=== PATIENT | male | born 1995 | race Caucasian/White ===

== ENCOUNTER 2021-07-21 08:45 | Emergency (ER) | payer OTHER ==
[2021-07-21 08:55] VITALS: RESP 18; TEMP 97.1
[2021-07-21] MEDS ORDERED: KETOROLAC 15 MG/ML 1 ML VIAL IVP STA (09:35)
--- NOTE | 2021-07-21 10:02 | ED ---
General Adult HPI - General Chief complaint: Back Pain/Injury Stated complaint: trouble urinating & lower back pain Time Seen by Provider: 07/21/21 09:17 Source: patient Mode of arrival: ambulatory Limitations: no limitations - History of Present Illness Initial comments: patient is a 25-year-old male with a history of opioid use disorder who presents to the emergency department with lower left back pain 2 months. No known mechanism of back injury. Patient describes the pain as an intermittent dull ache, 4 out of 10 in severity. patient has never experienced this pain before. pain radiates to the left flank and left upper quadrant below the ribs. patient states nothing makes the pain better or worse. patient reports associated urinary hesitancy, retention, and dysuria 2 months. he also reports left thigh numbness. He denies chest pain, fever, chills, penile discharge, and hematuria. Patient reports he is a nondrinker and is sexually active with no concerned for STIs. MD Complaint: left flank pain -: month(s) (two) Location: back Radiation: abdomen (LUQ below ribs), flank Severity scale (1-10): 4 Quality: dull Consistency: intermittent Improves with: none Worsens with: none Associated Symptoms: shortness of breath, other (urinary hesitancy, retention, dysuria ) Treatments Prior to Arrival: none, other - Related Data Allergies Allergy/AdvReac Type Severity Reaction Status Date / Time No Known Allergies Allergy Verified 07/21/21 08:55 Review of Systems ROS Statement: Those systems with pertinent positive or pertinent negative responses have been documented in the HPI. ROS Other: All systems not noted in ROS Statement are negative. Past Medical History Past Medical History: No Reported History History of Any Multi-Drug Resistant Organisms: None Reported Past Surgical History: No Surgical Hx Reported Past Psychological History: Anxiety, Depression Smoking Status: Current every day smoker Past Alcohol Use History: None Reported Past Drug Use History: None Reported General Exam Limitations: no limitations General appearance: alert, in no apparent distress Head exam: Present: atraumatic, normocephalic, normal inspection Eye exam: Present: normal appearance, PERRL, EOMI. Absent: scleral icterus, conjunctival injection, periorbital swelling Neck exam: Present: normal inspection. Absent: tenderness, meningismus, lymphadenopathy Respiratory exam: Present: normal lung sounds bilaterally. Absent: respiratory distress, wheezes, rales, rhonchi, stridor Cardiovascular Exam: Present: regular rate, normal rhythm, normal heart sounds. Absent: systolic murmur, diastolic murmur, rubs, gallop, clicks GI/Abdominal exam: Present: soft, normal bowel sounds. Absent: distended, tenderness, guarding, rebound, rigid Back exam: Present: full ROM, CVA tenderness (L). Absent: tenderness, CVA tenderness (R), muscle spasm, paraspinal tenderness, vertebral tenderness, rash noted Neurological exam: Present: alert Psychiatric exam: Present: normal affect, normal mood Skin exam: Present: warm, dry, intact, normal color Course Vital Signs 07/21/21 08:49 Temperature 97.1 F L Pulse Rate 76 Respiratory 18 Rate Blood Pressure 140/65 O2 Sat by Pulse 100 Oximetry Medical Decision Making - Medical Decision Making this is a 25-year-old male with back pain 2 months. Labs are unremarkable. CT abdomen reveals no acute process. Patient to be discharged with outpatient follow-up for MSK pain. Return parameters discussed. - Lab Data Result diagrams: 07/21/21 09:46 07/21/21 09:46 Lab Results 07/21/21 07/21/21 07/21/21 Range/Units 09:46 09:46 09:48 WBC 5.2 (3.8-10.6) k/uL RBC 4.89 (4.30-5.90) m/uL Hgb 14.6 (13.0-17.5) gm/dL Hct 43.9 (39.0-53.0) % MCV 89.8 (80.0-100.0) fL MCH 29.9 (25.0-35.0) pg MCHC 33.3 (31.0-37.0) g/dL RDW 12.8 (11.5-15.5) % Plt Count 291 (150-450) k/uL MPV 6.9 Neutrophils % 44 % Lymphocytes % 37 % Monocytes % 9 % Eosinophils % 8 % Basophils % 1 % Neutrophils # 2.3 (1.3-7.7) k/uL Lymphocytes # 2.0 (1.0-4.8) k/uL Monocytes # 0.4 (0-1.0) k/uL Eosinophils # 0.4 (0-0.7) k/uL Basophils # 0.0 (0-0.2) k/uL Sodium 139 (137-145) mmol/L Potassium 5.8 H (3.5-5.1) mmol/L Chloride 106 (98-107) mmol/L Carbon Dioxide 27 (22-30) mmol/L Anion Gap 6 mmol/L BUN 14 (9-20) mg/dL Creatinine 0.83 (0.66-1.25) mg/dL Est GFR (CKD-EPI)AfAm >90 (>60 ml/min/1.73 sqM) Est GFR (CKD-EPI)NonAf >90 (>60 ml/min/1.73 sqM) Glucose 101 H (74-99) mg/dL Calcium 9.7 (8.4-10.2) mg/dL Total Bilirubin 0.8 (0.2-1.3) mg/dL AST 34 (17-59) U/L ALT 23 (4-49) U/L Alkaline Phosphatase 59 (38-126) U/L Total Protein 7.5 (6.3-8.2) g/dL Albumin 4.6 (3.5-5.0) g/dL Lipase 72 (23-300) U/L Urine Color Yellow Urine Appearance Cloudy (Clear) Urine pH 6.5 (5.0-8.0) Ur Specific [place] 1.023 (1.001-1.035) Urine Protein Negative (Negative) Urine Glucose (UA) Negative (Negative) Urine Ketones Negative (Negative) Urine Blood Negative (Negative) Urine Nitrite Negative (Negative) Urine Bilirubin Negative (Negative) Urine Urobilinogen <2.0 (<2.0) mg/dL Ur Leukocyte Esterase Negative (Negative) Urine RBC <1 (0-5) /hpf Urine WBC 2 (0-5) /hpf Amorphous Sediment Occasional H (None) /hpf Urine Mucus Rare H (None) /hpf Disposition Clinical Impression: Mechanical back pain Disposition: HOME SELF-CARE Condition: Good Instructions (If sedation given, give patient instructions): Acute Low Back Pain (ED) Additional Instructions: Patient instructed to return to ED if back pain worsens or if there is new onset of fever, chills, or numbness. Is patient prescribed a controlled substance at d/c from ED?: No Referrals: None,Stated [Primary Care Provider] - 1-2 days Time of Disposition: 11:20
[2021-07-21 10:11] LABS: Basophils % (A) 1 %; Eosinophils # (A) 0.4 k/uL (0-0.7); Eosinophils % (A) 8 %; HCT 43.9 % (39.0-53.0); HGB 14.6 gm/dL (13.0-17.5); Lymphocytes % (A) 37 %; MCH 29.9 pg (25.0-35.0); MCHC 33.3 g/dL (31.0-37.0); MCV 89.8 fL (80.0-100.0); Mean Platelet Volume 6.9; Monocytes # (A) 0.4 k/uL (0-1.0); Monocytes % (A) 9 %; Neutrophils # (A) 2.3 k/uL (1.3-7.7); Neutrophils % (A) 44 %; Platelet Count 291 k/uL (150-450); RBC 4.89 m/uL (4.30-5.90); RDW 12.8 % (11.5-15.5); WBC 5.2 k/uL (3.8-10.6)
[2021-07-21 10:18] LABS: Amorphous Sediment,Urine Occasional /hpf; Appearance,Urine Cloudy (Clear); Bilirubin,Urine Negative (Negative); Blood,Urine Negative (Negative); Color,Urine Yellow; Glucose,Urine (UA) Negative (Negative); Ketones,Urine Negative (Negative); Leukocyte Esterase,Urine Negative (Negative); Mucus,Urine Rare /hpf; Nitrite,Urine Negative (Negative); PH, Urine 6.5 (5.0-8.0); Protein,Urine Negative (Negative); RBC,Urine <1 /hpf (0-5); Specific Gravity,Urine 1.023 (1.001-1.035); Urobilinogen,Urine <2.0 mg/dL (<2.0); WBC,Urine 2 /hpf (0-5)
[2021-07-21 10:26] LABS: ALT 23 U/L (4-49); AST 34 U/L (17-59); African American GFR (CKD) >90 (>60 ml/min/1.73 sqM); Albumin 4.6 g/dL (3.5-5.0); Alkaline Phosphatase 59 U/L (38-126); Anion Gap 6 mmol/L; Blood Urea Nitrogen 14 mg/dL (9-20); Calcium 9.7 mg/dL (8.4-10.2); Carbon Dioxide 27 mmol/L (22-30); Chloride 106 mmol/L (98-107); Glucose 101 mg/dL (74-99); Lipase 72 U/L (23-300); Non-African American GFR(CKD) >90 (>60 ml/min/1.73 sqM); Potassium 5.8 mmol/L (3.5-5.1); Sodium 139 mmol/L (137-145); Total Bilirubin 0.8 mg/dL (0.2-1.3); Total Protein 7.5 g/dL (6.3-8.2)
--- NOTE | 2021-07-21 10:32 | CT ---
EXAMINATION TYPE: CT abdomen pelvis wo con DATE OF EXAM: 07/21/2021 COMPARISON: None INDICATION: Left flank pain with trouble urinating DLP: 484.3 mGycm, Automated exposure control for dose reduction was used. CONTRAST: 0 mL of Isovue 300. Study performed without Oral Contrast TECHNIQUE: Axial images were obtained from above the diaphragm to the pubic rami in the axial plane a t 5 mm thick sections. Reconstructed images are reviewed on the computer in the coronal plane. FINDINGS: Limited CT sections are obtained the lung bases. The lung bases are clear. CT ABDOMEN: Liver: Normal Spleen: Normal Pancreas: Normal Adrenal glands: The adrenal glands are normal. Gallbladder: Normal Kidneys: No masses are evident. No hydronephrosis is present. No cysts are present. No renal stone s are evident. Aorta: Normal Inferior vena cava: Normal. CT PELVIS: Loops of bowel within the abdomen and pelvis are normal. This study is without oral contrast limi ting bowel evaluation. Appendix: Normal as visualized. Urinary bladder: Normal. Genitourinary structures: Prostate is unremarkable. Osseous structures: No suspicious lytic or sclerotic lesions. IMPRESSIONS: 1. No suspicious renal or ureteral stones.
[2021-07-21 11:37] VITALS: BP 132/66; PULSE 71
== END 2021-07-21 11:37 | disposition home or self-care (01) ==
LOC: EC 08:45
DX: M54.59 Other low back pain (principal); F41.9 Anxiety disorder, unspecified; F32.A Depression, unspecified; F17.200 Nicotine dependence, unspecified, uncomplicated
CPT/HCPCS: 99284 ×2; 96374 ×2; 36415; 80053; 83690; 85025; 81001; 74176; J1885

== ENCOUNTER 2021-08-23 05:56 | Emergency (ER) | payer OTHER ==
--- NOTE | 2021-08-23 06:31 | ED ---
Arrhythmia/Palpitations HPI - General Chief Complaint: Arrhythmia/Palpitations Stated Complaint: Rapid Heart Rate, left arm numbness Time Seen by Provider: 08/23/21 06:04 Source: patient Mode of arrival: ambulatory Limitations: no limitations - History of Present Illness Initial Comments: This is a 26 year old male who reports to the emergency department for feelings of his heart pounding and chest pressure that began 2 weeks ago. This morning he woke up with left arm numbness, which concerned him and brought him to the emergency department. Denies any personal or family history of cardiac problems. He does report associated shortness of breath. This occurs both at rest and during exercise with no pattern. Denies headaches, states that he does have dizziness when standing up quickly. Additionally, he reports itching and a rash that also began two weeks ago. Denies any new soaps or detergents. Also mentions that he has been waking up 3-4 times each night to urinate which also began about 2 weeks ago. He was evaluated in the emergency department 1 month ago for flank pain and urinary retention. CT abd/pelvis and lab work was unremarkable at this time. States that he does continue to have flank pain that occurs intermittently. MD Complaint: rapid heart beat, "heart racing", palpitations Associated Symptoms: shortness of breath, paresthesias - Related Data Home Medications Medication Instructions Recorded Confirmed No Known Home Medications 07/21/21 07/21/21 Allergies Allergy/AdvReac Type Severity Reaction Status Date / Time No Known Allergies Allergy Verified 08/23/21 06:00 Review of Systems ROS Statement: Those systems with pertinent positive or pertinent negative responses have been documented in the HPI. ROS Other: All systems not noted in ROS Statement are negative. Constitutional: Denies: fever, chills, weight change Respiratory: Reports: dyspnea. Denies: cough Cardiovascular: Reports: chest pain, palpitations Endocrine: Reports: polyuria Gastrointestinal: Denies: abdominal pain, nausea, vomiting, diarrhea Genitourinary: Reports: frequency. Denies: urgency, dysuria, hematuria Musculoskeletal: Reports: back pain Skin: Reports: as per HPI, rash, pruritus Neurological: Denies: headache, weakness Psychiatric: Denies: anxiety, depression Past Medical History Past Medical History: No Reported History History of Any Multi-Drug Resistant Organisms: None Reported Past Surgical History: No Surgical Hx Reported Past Psychological History: Anxiety, Depression Smoking Status: Current every day smoker Past Alcohol Use History: None Reported Past Drug Use History: None Reported General Exam Limitations: no limitations General appearance: alert Head exam: Present: atraumatic, normocephalic Neck exam: Present: normal inspection. Absent: lymphadenopathy, thyromegaly Respiratory exam: Present: normal lung sounds bilaterally. Absent: respiratory distress, wheezes, rales, rhonchi Cardiovascular Exam: Present: regular rate, normal rhythm, normal heart sounds. Absent: systolic murmur, diastolic murmur, rubs, gallop, clicks GI/Abdominal exam: Present: soft, normal bowel sounds. Absent: distended, tenderness, guarding, rebound, rigid Extremities exam: Present: normal inspection, full ROM, normal capillary refill. Absent: tenderness, pedal edema, joint swelling, calf tenderness Back exam: Present: normal inspection. Absent: CVA tenderness (R), CVA tenderness (L) Neurological exam: Present: alert, oriented X3, CN II-XII intact Psychiatric exam: Present: normal affect, normal mood Skin exam: Present: warm, dry, intact, normal color. Absent: rash Course Vital Signs 08/23/21 06:01 Temperature 97.8 F Pulse Rate 71 Respiratory 16 Rate Blood Pressure 157/85 O2 Sat by Pulse 100 Oximetry - Reevaluation(s) Time: 07:01 (Patient resting comfortably. No current complaints.) EKG Findings - EKG Comments: EKG Findings:: First EKG had artificats making evaluation difficult. Repeat EKG unremarkable. Medical Decision Making - Medical Decision Making This is a 26 year old male who presents to the emergency department for chest pressure and palpitations. First EKG was repeated due to multiple artifacts. Repeat EKG was unremarkable. CXR also revealed no abnormalities. Lab work including CBC, CMP, coags, UA, TSH, and troponin were unremarkable. Patient has no personal or family history of cardiac disease, including sudden cardiac . Cardiac etiology unlikely given unremarkable EKG, CXR, and lab work. No emergent cause for his reported symptoms is found at this time and patient is stable for discharge home. Return precautions reviewed in depth, the patient is instructed to return to the emergency department if symptoms worsen or do not improve. Patient verbalized understanding. Patient advised to find a primary care physician to follow up on his symptoms and his blood pressure. This case was discussed in detail with the attending ED physician. Presentation, findings, and treatment plan discussed in detail as well. - EKG Data EKG shows normal: sinus rhythm Interpretation: no acute changes - Radiology Data Radiology results: report reviewed, image reviewed Unremarkable chest xray Disposition Clinical Impression: Palpitations Disposition: HOME SELF-CARE Condition: Stable Instructions (If sedation given, give patient instructions): Heart Palpitations (ED) Additional Instructions: Return to the emergency department if symptoms worsen or do not improve. Connect with a primary care physician for follow up of symptoms and blood pressure evaluation. Is patient prescribed a controlled substance at d/c from ED?: No Referrals: None,Stated [Primary Care Provider] - 1-2 days
--- NOTE | 2021-08-23 06:37 | XR ---
EXAMINATION TYPE: XR chest 2V DATE OF EXAM: 08/23/2021 COMPARISON: NONE HISTORY: Dysrhythmia TECHNIQUE: 2 views FINDINGS: Heart and mediastinum are normal. Lungs are clear. Diaphragm is normal. Bony thorax appears normal. IMPRESSION: Normal chest.
[2021-08-23 06:38] LABS: Basophils # (A) 0.1 k/uL (0-0.2); Basophils % (A) 1 %; Eosinophils # (A) 0.5 k/uL (0-0.7); Eosinophils % (A) 7 %; HCT 42.3 % (39.0-53.0); HGB 14.4 gm/dL (13.0-17.5); Lymphocytes # (A) 2.3 k/uL (1.0-4.8); Lymphocytes % (A) 35 %; MCH 30.3 pg (25.0-35.0); MCV 88.9 fL (80.0-100.0); Mean Platelet Volume 7.2; Monocytes # (A) 0.5 k/uL (0-1.0); Monocytes % (A) 7 %; Neutrophils # (A) 3.2 k/uL (1.3-7.7); Neutrophils % (A) 49 %; Platelet Count 305 k/uL (150-450); RBC 4.76 m/uL (4.30-5.90); RDW 12.7 % (11.5-15.5); WBC 6.6 k/uL (3.8-10.6)
[2021-08-23 06:47] LABS: Partial Thromboplastin Time 28.5 sec (22.0-30.0)
[2021-08-23 06:50] LABS: ALT 25 U/L (4-49); AST 31 U/L (17-59); African American GFR (CKD) >90 (>60 ml/min/1.73 sqM); Albumin 4.7 g/dL (3.5-5.0); Alkaline Phosphatase 85 U/L (38-126); Anion Gap 6 mmol/L; Blood Urea Nitrogen 11 mg/dL (9-20); Calcium 9.5 mg/dL (8.4-10.2); Carbon Dioxide 30 mmol/L (22-30); Chloride 103 mmol/L (98-107); Glucose 93 mg/dL (74-99); Non-African American GFR(CKD) >90 (>60 ml/min/1.73 sqM); Potassium 3.7 mmol/L (3.5-5.1); Sodium 139 mmol/L (137-145); Total Bilirubin 0.5 mg/dL (0.2-1.3); Total Protein 7.7 g/dL (6.3-8.2)
[2021-08-23 07:30] LABS: Appearance,Urine Clear (Clear); Bilirubin,Urine Negative (Negative); Blood,Urine Negative (Negative); Color,Urine Light Yellow; Glucose,Urine (UA) Negative (Negative); Ketones,Urine Negative (Negative); Leukocyte Esterase,Urine Negative (Negative); Nitrite,Urine Negative (Negative); Protein,Urine Negative (Negative); Specific Gravity,Urine 1.009 (1.001-1.035); Urobilinogen,Urine <2.0 mg/dL (<2.0)
[2021-08-23 08:30] VITALS: BP 134/79; PULSE 76; RESP 14; TEMP 98
== END 2021-08-23 08:36 | disposition home or self-care (01) ==
LOC: EC 05:56
DX: R00.2 Palpitations (principal); F17.200 Nicotine dependence, unspecified, uncomplicated
CPT/HCPCS: 36415; 71046; 80053; 81003; 84443; 84484; 85025; 85610; 85730; 93005; 99285

== ENCOUNTER 2021-12-08 19:02 | Emergency (ER) | payer OTHER ==
[2021-12-08 19:32] VITALS: BP 150/83; PULSE 103; RESP 16; TEMP 98.3
[2021-12-08] MEDS ORDERED: KETOROLAC 15 MG/ML 1 ML VIAL IVP STA (20:37)
[2021-12-08] MEDS ORDERED: SODIUM CHLORIDE 0.9% 2,000 ML IV STA (20:37)
[2021-12-08 20:56] LABS: Basophils # (A) 0.1 k/uL (0-0.2); Basophils % (A) 1 %; Eosinophils # (A) 0.2 k/uL (0-0.7); Eosinophils % (A) 3 %; HGB 14.6 gm/dL (13.0-17.5); Lymphocytes # (A) 2.1 k/uL (1.0-4.8); Lymphocytes % (A) 26 %; MCH 28.2 pg (25.0-35.0); MCHC 31.7 g/dL (31.0-37.0); Mean Platelet Volume 8.1; Monocytes # (A) 0.3 k/uL (0-1.0); Monocytes % (A) 4 %; Neutrophils % (A) 64 %; Platelet Count 386 k/uL (150-450); RBC 5.17 m/uL (4.30-5.90); RDW 12.4 % (11.5-15.5); WBC 7.9 k/uL (3.8-10.6)
[2021-12-08 21:02] LABS: Amorphous Sediment,Urine Moderate /hpf; Appearance,Urine Cloudy (Clear); Bilirubin,Urine Negative (Negative); Blood,Urine Negative (Negative); Color,Urine Yellow; Glucose,Urine (UA) Negative (Negative); Ketones,Urine 1+ (Negative); Leukocyte Esterase,Urine Negative (Negative); Mucus,Urine Few /hpf; Nitrite,Urine Negative (Negative); PH, Urine 7.5 (5.0-8.0); Protein,Urine Negative (Negative); RBC,Urine 1 /hpf (0-5); Urobilinogen,Urine <2.0 mg/dL (<2.0); WBC,Urine 1 /hpf (0-5)
[2021-12-08 21:05] LABS: ALT 14 U/L (4-49); AST 25 U/L (17-59); African American GFR (CKD) >90 (>60 ml/min/1.73 sqM); Albumin 5.5 g/dL (3.5-5.0); Alkaline Phosphatase 67 U/L (38-126); Anion Gap 12 mmol/L; Blood Urea Nitrogen 12 mg/dL (9-20); Calcium 9.9 mg/dL (8.4-10.2); Carbon Dioxide 26 mmol/L (22-30); Chloride 101 mmol/L (98-107); Glucose 90 mg/dL (74-99); Lipase 58 U/L (23-300); Non-African American GFR(CKD) >90 (>60 ml/min/1.73 sqM); Sodium 139 mmol/L (137-145); Total Bilirubin 0.7 mg/dL (0.2-1.3); Total Protein 8.5 g/dL (6.3-8.2)
--- NOTE | 2021-12-08 21:49 | CT ---
EXAMINATION TYPE: CT abdomen pelvis wo con DATE OF EXAM: 12/08/2021 COMPARISON: 07/21/2021 HISTORY: lower abdominal/pelvic pain on and off xfew months CT DLP: 496.7 mGycm Automated exposure control for dose reduction was used. Images obtained from the diaphragm to the floor of the pelvis with no contrast. Lung bases are clear. No pleural effusion. Heart size is normal. No pericardial effusion. Liver splee n stomach pancreas gallbladder appear intact. The bile ducts are not dilated. There is no adrenal mass. Kidneys have normal size. There is no hydronephrosis. Ureters are not dilat ed. There is no retroperitoneal adenopathy. Bladder distends smoothly. There is no inguinal hernia. T he appendix is inferior and appears normal. There is no mesenteric edema. No ascites or free air. No sign of a bowel obstruction. The lumbar vertebrae have normal alignment. Posterior elements are intact. No compression fracture. T he bony pelvis is intact. Hip joints appear normal. Sacroiliac joints appear normal. IMPRESSION: Negative CT scan abdomen and pelvis. Normal appendix. No adverse change compared to old exam.
--- NOTE | 2021-12-08 21:58 | ED ---
Abdominal Pain HPI - General Chief Complaint: Abdominal Pain Stated Complaint: abd pain Time Seen by Provider: 12/08/21 20:17 Source: patient Mode of arrival: ambulatory Limitations: no limitations - History of Present Illness Initial Comments: Patient is a 26 -year-old male who presents to the emergency department with a chief complaint of intermittent abdominal pain 2 months. Patient states the pain comes and goes in the left lower abdomen. There is radiation to the left back. Patient states he feels like there is tingling in his kidney. Denies pain now. Patient reports intermittent burning with urination, increased urinary frequency, and chills. He denies penile pain, penile discharge, testicular pain, nausea, and vomiting. Patient states he has been with the same partner for 3 months now and is little concern for sexually transmitted infections. Denies history of urinary tract infection, kidney stone, and kidney infection. - Related Data Previous Rx's Medication Instructions Recorded Doxycycline Monohydrate [Monodox] 100 mg PO Q12HR 14 Days #28 cap 12/08/21 Allergies Allergy/AdvReac Type Severity Reaction Status Date / Time No Known Allergies Allergy Verified 12/08/21 22:05 Review of Systems ROS Statement: Those systems with pertinent positive or pertinent negative responses have been documented in the HPI. ROS Other: All systems not noted in ROS Statement are negative. Past Medical History Past Medical History: No Reported History History of Any Multi-Drug Resistant Organisms: None Reported Past Surgical History: No Surgical Hx Reported Past Psychological History: Anxiety, Depression Smoking Status: Current every day smoker Past Alcohol Use History: None Reported Past Drug Use History: None Reported, IV Drug Use General Exam Limitations: no limitations General appearance: alert, in no apparent distress Head exam: Present: atraumatic, normocephalic, normal inspection Eye exam: Present: normal appearance, PERRL, EOMI. Absent: scleral icterus, conjunctival injection, periorbital swelling Respiratory exam: Present: normal lung sounds bilaterally. Absent: respiratory distress, wheezes, rales, rhonchi, stridor Cardiovascular Exam: Present: regular rate, normal rhythm, normal heart sounds. Absent: systolic murmur, diastolic murmur, rubs, gallop, clicks GI/Abdominal exam: Present: soft, normal bowel sounds. Absent: distended, tenderness, guarding, rebound, rigid Back exam: Present: normal inspection. Absent: CVA tenderness (R), CVA tenderness (L), paraspinal tenderness, vertebral tenderness Neurological exam: Present: alert, oriented X3, CN II-XII intact Psychiatric exam: Present: normal affect, normal mood Skin exam: Present: warm, dry, intact, normal color. Absent: rash Course Vital Signs 12/08/21 19:30 Temperature 98.3 F Pulse Rate 103 H Respiratory 16 Rate Blood Pressure 150/83 O2 Sat by Pulse 98 Oximetry Medical Decision Making - Medical Decision Making This 26-year-old male who presents with intermittent left lower quadrant pain with radiation to the back, chills, urinary symptoms. Thorough history and examination were performed. Patient is well appearing and reports no pain now. He is afebrile. The abdomen is soft and nontender. With patient's concerns I am more suspicious of infectious process rather than stone. I will obtain laboratory studies first in CT of the abdomen and pelvis without contrast after if warranted. Laboratory studies are relatively unremarkable. Patient has normal white count at 7.9. Urinalysis is not indicated of blood or infection. At this time CT of the abdomen and pelvis was obtained which is negative for acute process. Results discussed with patient. At this time there are no diagnostic studies to explain patient's symptoms. Patient and I discussed possible prostatitis. Patient states he has not been tested for sexually transmitted infections in a long time. He is agreeable to testing and prophylactic treatment. Patient does not have a primary care provider. I will provide him with a couple options to follow-up with his see if there are taking new patients. Patient instructed that if these primary care providers are not taking new patients he will have to call and find a different primary care provider. Return parameters discussed. Patient verbalizes understanding and is agreeable to this plan. Dr. Melendez is my attending. - Lab Data Result diagrams: 12/08/21 20:43 12/08/21 20:43 Lab Results 12/08/21 12/08/21 12/08/21 Range/Units 20:43 20:43 20:43 WBC 7.9 (3.8-10.6) k/uL RBC 5.17 (4.30-5.90) m/uL Hgb 14.6 (13.0-17.5) gm/dL Hct 46.0 (39.0-53.0) % MCV 89.0 (80.0-100.0) fL MCH 28.2 (25.0-35.0) pg MCHC 31.7 (31.0-37.0) g/dL RDW 12.4 (11.5-15.5) % Plt Count 386 (150-450) k/uL MPV 8.1 Neutrophils % 64 % Lymphocytes % 26 % Monocytes % 4 % Eosinophils % 3 % Basophils % 1 % Neutrophils # 5.0 (1.3-7.7) k/uL Lymphocytes # 2.1 (1.0-4.8) k/uL Monocytes # 0.3 (0-1.0) k/uL Eosinophils # 0.2 (0-0.7) k/uL Basophils # 0.1 (0-0.2) k/uL Sodium 139 (137-145) mmol/L Potassium 4.0 (3.5-5.1) mmol/L Chloride 101 (98-107) mmol/L Carbon Dioxide 26 (22-30) mmol/L Anion Gap 12 mmol/L BUN 12 (9-20) mg/dL Creatinine 0.80 (0.66-1.25) mg/dL Est GFR (CKD-EPI)AfAm >90 (>60 ml/min/1.73 sqM) Est GFR (CKD-EPI)NonAf >90 (>60 ml/min/1.73 sqM) Glucose 90 (74-99) mg/dL Calcium 9.9 (8.4-10.2) mg/dL Total Bilirubin 0.7 (0.2-1.3) mg/dL AST 25 (17-59) U/L ALT 14 (4-49) U/L Alkaline Phosphatase 67 (38-126) U/L Total Protein 8.5 H (6.3-8.2) g/dL Albumin 5.5 H (3.5-5.0) g/dL Lipase 58 (23-300) U/L Urine Color Yellow Urine Appearance Cloudy (Clear) Urine pH 7.5 (5.0-8.0) Ur Specific [place] 1.020 (1.001-1.035) Urine Protein Negative (Negative) Urine Glucose (UA) Negative (Negative) Urine Ketones 1+ H (Negative) Urine Blood Negative (Negative) Urine Nitrite Negative (Negative) Urine Bilirubin Negative (Negative) Urine Urobilinogen <2.0 (<2.0) mg/dL Ur Leukocyte Esterase Negative (Negative) Urine RBC 1 (0-5) /hpf Urine WBC 1 (0-5) /hpf Amorphous Sediment Moderate H (None) /hpf Urine Mucus Few H (None) /hpf Disposition Clinical Impression: Abdominal pain, Back pain, Chills, Burning with urination Disposition: HOME SELF-CARE Condition: Good Instructions (If sedation given, give patient instructions): Nonspecific Urethritis in Men (ED), Abdominal Pain (ED), Back Pain (ED) Additional Instructions: Please take antibiotic as directed. Take Tylenol or Motrin as needed for pain. Follow-up with primary care provider in one to 2 days. I will refer you to a primary care provider. I listed to different primary care providers so you can attempt both. You will need to call to see if they're taking new patients and if not will need to find a primary care provider who takes your insurance. Return to the emergency department if you experience new, concerning, or worsening symptoms. Prescriptions: Doxycycline Monohydrate [Monodox] 100 mg PO Q12HR 14 Days #28 cap Is patient prescribed a controlled substance at d/c from ED?: No Referrals: None,Stated [Primary Care Provider] - 1-2 days Asif Turner DO [Doctor of Osteopathic Medicine] - 1-2 days Papo Pierre MD [STAFF PHYSICIAN] - 1-2 days Time of Disposition: 21:58
[2021-12-08] MEDS ORDERED: cefTRIAXone 250 MG VIAL IM STA (22:17)
[2021-12-08] MEDS ORDERED: DOXYCYCLINE 100 MG CAP PO STA (22:18)
[2021-12-08] MEDS ORDERED: cefTRIAXone IN SWFI 1,000 MG/10 ML SYRINGE IVP STA (22:19)
[2021-12-09 14:23] LABS: C. trachomatis,PCR Negative (Neg,Equiv); Chlamydia trachomatis Source Urine; N. gonorrhoeae,PCR Negative (Neg,Equiv); Neisseria Source Urine
== END 2021-12-08 22:32 | disposition home or self-care (01) ==
LOC: EC 19:02
DX: R10.32 Left lower quadrant pain (principal); M54.9 Dorsalgia, unspecified; R68.83 Chills (without fever); R30.9 Painful micturition, unspecified; F17.200 Nicotine dependence, unspecified, uncomplicated
CPT/HCPCS: 36415; 80053; 83690; 85025; 81001; 87491; 87591; 74176; 99284; 96374; 96375; 96361; J0696; J1885

== ENCOUNTER 2022-04-28 17:07 | Emergency (ER) | payer OTHER ==
[2022-04-28] MEDS ORDERED: SODIUM CHLORIDE 0.9% 1,000 ML IV STA (19:35)
--- NOTE | 2022-04-28 20:05 | ED ---
General Adult HPI - General Chief complaint: Fever Stated complaint: chest pain Time Seen by Provider: 04/28/22 19:23 Source: patient Mode of arrival: ambulatory Limitations: no limitations - History of Present Illness Initial comments: Patient is a 26-year-old male with no significant past medical history presenting with multiple complaints. Patient is complaining of chest pain and difficulty breathing that has been ongoing intermittently for weeks. No worsening or alleviating factors. Patient has been evaluated here previously for these complaints. Patient states pain is located mainly on the left side. Patient also admits to chills and subjective fever. He admits to upper abdominal pain. Denies nausea and vomiting. Denies hematochezia or melena. Admits to intermittent dysuria, no hematuria. He admits to headache. He denies any numbness, tingling, weakness, palpitations. - Related Data Home Medications Medication Instructions Recorded Confirmed No Known Home Medications 04/28/22 04/28/22 Allergies Allergy/AdvReac Type Severity Reaction Status Date / Time No Known Allergies Allergy Verified 04/28/22 22:21 Review of Systems ROS Statement: Those systems with pertinent positive or pertinent negative responses have been documented in the HPI. ROS Other: All systems not noted in ROS Statement are negative. Past Medical History Past Medical History: No Reported History History of Any Multi-Drug Resistant Organisms: None Reported Past Surgical History: No Surgical Hx Reported Past Psychological History: Anxiety, Depression Smoking Status: Current every day smoker Past Alcohol Use History: None Reported Past Drug Use History: None Reported, IV Drug Use General Exam Limitations: no limitations General appearance: alert, in no apparent distress Head exam: Present: atraumatic, normocephalic, normal inspection Eye exam: Present: normal appearance, PERRL, EOMI. Absent: scleral icterus, conjunctival injection, periorbital swelling Neck exam: Present: full ROM. Absent: normal inspection Respiratory exam: Present: normal lung sounds bilaterally. Absent: respiratory distress, wheezes, rales, rhonchi, stridor Cardiovascular Exam: Present: regular rate, normal rhythm, normal heart sounds. Absent: systolic murmur, diastolic murmur, rubs, gallop, clicks GI/Abdominal exam: Present: soft. Absent: distended, tenderness, guarding, rebound, rigid Neurological exam: Present: alert, oriented X3, CN II-XII intact Psychiatric exam: Present: normal affect, normal mood Skin exam: Present: warm, dry, intact, normal color. Absent: rash Course Vital Signs 04/28/22 04/28/22 17:17 23:26 Pulse Rate 108 H 84 Respiratory 16 15 Rate Blood Pressure 154/84 133/74 O2 Sat by Pulse 100 98 Oximetry EKG Findings - EKG Comments: EKG Findings:: Sinus rhythm rate of 90. ME interval 133. QRS duration 100. QT/QTC 360/409. No ischemic changes. Medical Decision Making - Medical Decision Making Patient is a 26-year-old male presenting with multiple complaints, they include chest pain, difficulty breathing, abdominal pain, headache. Symptoms have been intermittent for weeks. Patient has been evaluated previously for these com plaints. CBC, coags, d-dimer, CMP, troponin are negative. Urine shows 2+ ketones, likely due to dehydration, patient is receiving fluids. Patient is negative for Covid. Chest x-ray and abdominal ultrasound are negative for any acute process. On reevaluation patient reports improvement in his symptoms. He appears stable for discharge with outpatient follow-up at this time.Follow-up with PCP. Report back to ER with any new or worsening symptoms. Discussed return parameters and answered all questions. Patient conveyed verbal understanding and agreed to the plan. I discussed this case in detail with my attending Dr. Choi - Lab Data Result diagrams: 04/28/22 20:05 04/28/22 20:05 Lab Results 04/28/22 04/28/22 04/28/22 Range/Units 17:20 20:05 20:05 WBC 7.5 (3.8-10.6) k/uL RBC 5.32 (4.30-5.90) m/uL Hgb 16.3 (13.0-17.5) gm/dL Hct 47.2 (39.0-53.0) % MCV 88.7 (80.0-100.0) fL MCH 30.7 (25.0-35.0) pg MCHC 34.6 (31.0-37.0) g/dL RDW 12.5 (11.5-15.5) % Plt Count 328 (150-450) k/uL MPV 7.2 Neutrophils % 65 % Lymphocytes % 26 % Monocytes % 5 % Eosinophils % 3 % Basophils % 0 % Neutrophils # 4.9 (1.3-7.7) k/uL Lymphocytes # 1.9 (1.0-4.8) k/uL Monocytes # 0.3 (0-1.0) k/uL Eosinophils # 0.2 (0-0.7) k/uL Basophils # 0.0 (0-0.2) k/uL PT 10.2 (9.0-12.0) sec INR 0.9 (<1.2) APTT 28.0 (22.0-30.0) sec D-Dimer 0.33 (<0.60) mg/L FEU Sodium (137-145) mmol/L Potassium (3.5-5.1) mmol/L Chloride (98-107) mmol/L Carbon Dioxide (22-30) mmol/L Anion Gap mmol/L BUN (9-20) mg/dL Creatinine (0.66-1.25) mg/dL Est GFR (CKD-EPI)AfAm (>60 ml/min/1.73 sqM) Est GFR (CKD-EPI)NonAf (>60 ml/min/1.73 sqM) Glucose (74-99) mg/dL Calcium (8.4-10.2) mg/dL Magnesium (1.6-2.3) mg/dL Total Bilirubin (0.2-1.3) mg/dL AST (17-59) U/L ALT (4-49) U/L Alkaline Phosphatase (38-126) U/L Troponin I (0.000-0.034) ng/mL Total Protein (6.3-8.2) g/dL Albumin (3.5-5.0) g/dL Amylase (30-110) U/L Lipase (23-300) U/L Urine Color Urine Appearance (Clear) Urine pH (5.0-8.0) Ur Specific [place] (1.001-1.035) Urine Protein (Negative) Urine Glucose (UA) (Negative) Urine Ketones (Negative) Urine Blood (Negative) Urine Nitrite (Negative) Urine Bilirubin (Negative) Urine Urobilinogen (<2.0) mg/dL Ur Leukocyte Esterase (Negative) Urine RBC (0-5) /hpf Urine WBC (0-5) /hpf Urine Mucus (None) /hpf Coronavirus (PCR) Not Detected (Not Detectd) 04/28/22 04/28/22 04/28/22 Range/Units 20:05 20:05 23:31 WBC (3.8-10.6) k/uL RBC (4.30-5.90) m/uL Hgb (13.0-17.5) gm/dL Hct (39.0-53.0) % MCV (80.0-100.0) fL MCH (25.0-35.0) pg MCHC (31.0-37.0) g/dL RDW (11.5-15.5) % Plt Count (150-450) k/uL MPV Neutrophils % % Lymphocytes % % Monocytes % % Eosinophils % % Basophils % % Neutrophils # (1.3-7.7) k/uL Lymphocytes # (1.0-4.8) k/uL Monocytes # (0-1.0) k/uL Eosinophils # (0-0.7) k/uL Basophils # (0-0.2) k/uL PT (9.0-12.0) sec INR (<1.2) APTT (22.0-30.0) sec D-Dimer (<0.60) mg/L FEU Sodium 142 (137-145) mmol/L Potassium 3.7 (3.5-5.1) mmol/L Chloride 101 (98-107) mmol/L Carbon Dioxide 24 (22-30) mmol/L Anion Gap 17 mmol/L BUN 11 (9-20) mg/dL Creatinine 0.77 (0.66-1.25) mg/dL Est GFR (CKD-EPI)AfAm >90 (>60 ml/min/1.73 sqM) Est GFR (CKD-EPI)NonAf >90 (>60 ml/min/1.73 sqM) Glucose 95 (74-99) mg/dL Calcium 10.1 (8.4-10.2) mg/dL Magnesium 2.2 (1.6-2.3) mg/dL Total Bilirubin 1.0 (0.2-1.3) mg/dL AST 24 (17-59) U/L ALT 20 (4-49) U/L Alkaline Phosphatase 71 (38-126) U/L Troponin I <0.012 (0.000-0.034) ng/mL Total Protein 8.6 H (6.3-8.2) g/dL Albumin 5.5 H (3.5-5.0) g/dL Amylase 50 (30-110) U/L Lipase 64 (23-300) U/L Urine Color Yellow Urine Appearance Cloudy (Clear) Urine pH 7.5 (5.0-8.0) Ur Specific [place] 1.023 (1.001-1.035) Urine Protein Trace H (Negative) Urine Glucose (UA) Negative (Negative) Urine Ketones 2+ H (Negative) Urine Blood Negative (Negative) Urine Nitrite Negative (Negative) Urine Bilirubin Negative (Negative) Urine Urobilinogen <2.0 (<2.0) mg/dL Ur Leukocyte Esterase Negative (Negative) Urine RBC 2 (0-5) /hpf Urine WBC 6 H (0-5) /hpf Urine Mucus Many H (None) /hpf Coronavirus (PCR) (Not Detectd) Disposition Clinical Impression: Abdominal pain, Atypical chest pain Disposition: HOME SELF-CARE Condition: Good Instructions (If sedation given, give patient instructions): Chest Pain (ED), Abdominal Pain (ED), Noncardiac Chest Pain (ED) Additional Instructions: Follow-up with PCP. Report back to ER with any new or worsening symptoms. Take Motrin and Tylenol as needed for pain control. Is patient prescribed a controlled substance at d/c from ED?: No Referrals: None,Stated [Primary Care Provider] - 1-2 days Time of Disposition: 22:58
[2022-04-28 20:20] LABS: Basophils % (A) 0 %; Eosinophils # (A) 0.2 k/uL (0-0.7); Eosinophils % (A) 3 %; HCT 47.2 % (39.0-53.0); HGB 16.3 gm/dL (13.0-17.5); Lymphocytes # (A) 1.9 k/uL (1.0-4.8); Lymphocytes % (A) 26 %; MCH 30.7 pg (25.0-35.0); MCHC 34.6 g/dL (31.0-37.0); MCV 88.7 fL (80.0-100.0); Mean Platelet Volume 7.2; Monocytes # (A) 0.3 k/uL (0-1.0); Monocytes % (A) 5 %; Neutrophils # (A) 4.9 k/uL (1.3-7.7); Neutrophils % (A) 65 %; Platelet Count 328 k/uL (150-450); RBC 5.32 m/uL (4.30-5.90); RDW 12.5 % (11.5-15.5); WBC 7.5 k/uL (3.8-10.6)
[2022-04-28 20:28] LABS: ALT 20 U/L (4-49); AST 24 U/L (17-59); African American GFR (CKD) >90 (>60 ml/min/1.73 sqM); Albumin 5.5 g/dL (3.5-5.0); Alkaline Phosphatase 71 U/L (38-126); Amylase 50 U/L (30-110); Anion Gap 17 mmol/L; Blood Urea Nitrogen 11 mg/dL (9-20); Calcium 10.1 mg/dL (8.4-10.2); Carbon Dioxide 24 mmol/L (22-30); Chloride 101 mmol/L (98-107); Glucose 95 mg/dL (74-99); Lipase 64 U/L (23-300); Magnesium 2.2 mg/dL (1.6-2.3); Non-African American GFR(CKD) >90 (>60 ml/min/1.73 sqM); Potassium 3.7 mmol/L (3.5-5.1); Sodium 142 mmol/L (137-145); Total Protein 8.6 g/dL (6.3-8.2)
--- NOTE | 2022-04-28 20:28 | XR ---
EXAMINATION TYPE: XR chest 2V DATE OF EXAM: 04/28/2022 COMPARISON: NONE HISTORY: Chest pain TECHNIQUE: 2 view FINDINGS: Heart is normal. Lungs are clear. Diaphragm is normal. Bony thorax is intact. IMPRESSION: Normal chest.
[2022-04-28 20:34] LABS: INR 0.9 (<1.2); Prothrombin Time 10.2 sec (9.0-12.0)
--- NOTE | 2022-04-28 22:08 | US ---
EXAMINATION TYPE: US abdomen limited DATE OF EXAM: 04/28/2022 COMPARISON: CT: 12/08/21 CLINICAL HISTORY: upper abdominal pain. upper abd pain x 3 months TECHNIQUE: Multiple sonographic images of the right upper quadrant are obtained. FINDINGS: EXAM MEASUREMENTS: Liver Length: 12.6 cm Gallbladder Wall: 0.15 cm CBD: 0.15 cm Right Kidney: 10.2 x 5.6 x 5.1 cm [employer]OOK[employer]ING MA[employer]GER NOTES: Pancreas: wnl Liver: wnl Gallbladder: wnl Evidence for sonographic Gruber's sign: No CBD: wnl Right Kidney: wnl IMPRESSION: Normal exam. No gallstones or dilated ducts.
[2022-04-28] MEDS ORDERED: FAMOTIDINE 20 MG/2 ML VIAL IV STA (22:13)
[2022-04-28] MEDS ORDERED: KETOROLAC 15 MG/ML 1 ML VIAL IVP STA (22:13)
[2022-04-28] MEDS ORDERED: MAG HYDROX/AL HYDROX/SIMETH 30 ML, HYOSCYAMINE ELIXIR 10 ML, LIDOCAINE VISCOUS 2% 10 ML PO STA ×3 (22:13)
[2022-04-28 23:27] VITALS: BP 133/74; PULSE 84; RESP 15
[2022-04-29 00:04] LABS: Appearance,Urine Cloudy (Clear); Bilirubin,Urine Negative (Negative); Blood,Urine Negative (Negative); Color,Urine Yellow; Glucose,Urine (UA) Negative (Negative); Ketones,Urine 2+ (Negative); Leukocyte Esterase,Urine Negative (Negative); Mucus,Urine Many /hpf; Nitrite,Urine Negative (Negative); PH, Urine 7.5 (5.0-8.0); Protein,Urine Trace (Negative); RBC,Urine 2 /hpf (0-5); Specific Gravity,Urine 1.023 (1.001-1.035); Urobilinogen,Urine <2.0 mg/dL (<2.0); WBC,Urine 6 /hpf (0-5)
== END 2022-04-28 23:28 | disposition home or self-care (01) ==
LOC: EC 17:07
DX: R07.89 Other chest pain (principal); R10.9 Unspecified abdominal pain; F41.9 Anxiety disorder, unspecified; F32.A Depression, unspecified; F17.200 Nicotine dependence, unspecified, uncomplicated; Z20.822 Contact with and (suspected) exposure to COVID-19
CPT/HCPCS: 36415; 71046; 76705; 80053; 81001; 82150; 83690; 83735; 84484; 85025; 85379; 85610; 85730; 87635; 93005; 99285